=== PATIENT | female | born 1950 | race Hispanic/Latino ===

== ENCOUNTER 2016-10-11 09:34 | Day surgery (SDC) | payer MEDICARE ==
[2016-10-11 10:07] VITALS: BMI 21.9
[2016-10-11] MEDS ORDERED: Lactated Ringer's 500 ML IV ONE (11:19)
[2016-10-11] MEDS ORDERED: Propofol 10 mg/ml Inj (20 ML) ONE (11:23)
[2016-10-11] MEDS ORDERED: Lactated Ringer's 1,000 ML IV ONE (12:07)
[2016-10-11 12:47] VITALS: BP 136/83; RESP 19; O2SAT 100
[2016-10-11 14:07] VITALS: PULSE 55; TEMP 97.6
== END 2016-10-11 14:10 | disposition home or self-care (01) ==
LOC: C.ENDO 09:34
PROVIDERS: ATTEND Internal Medicine Gastroenterology
DX: Z12.11 Encounter for screening for malignant neoplasm of colon (principal); D12.2 Benign neoplasm of ascending colon; D12.0 Benign neoplasm of cecum; D12.3 Benign neoplasm of transverse colon; K64.1 Second degree hemorrhoids
CPT/HCPCS: 45380; 88305; J2001; J2704; J7120